=== PATIENT | male | born 1985 | race Caucasian/White ===

== ENCOUNTER 2016-11-26 19:37 | Emergency (ER) | payer OTHER ==
[~2016-11-26] VITALS: Ht 185.4 cm; Wt 90.5 kg
[~2016-11-26 19:37] MED LIST: CLIN-73 PO; HYDR-3498 PO
[2016-11-26 20:09] VITALS: Ht 185.4 cm; Wt 90.5 kg
[2016-11-26] MEDS ORDERED: SSD1C20 TOP (21:44)
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
[2016-11-26] MEDS ORDERED: SILVER SULFADIAZINE 1% 25 GM CR TOP ONE (22:00)
[2016-11-26 22:18] VITALS: BP 117/89; PULSE 89; RESP 17; TEMP 98.6
== END 2016-11-26 22:18 | disposition home or self-care (01) ==
LOC: FTE 19:37
DX: T22.212A Burn of second degree of left forearm, initial encounter (principal); F17.210 Nicotine dependence, cigarettes, uncomplicated; X14.1XXA Other contact with hot air and other hot gases, initial encounter; Y92.9 Unspecified place or not applicable
CPT/HCPCS: 16020; Z7502; Z7610